=== PATIENT | male | born 1985 | race Two or more races ===

== ENCOUNTER 2018-07-13 08:39 | Emergency (ER) | payer OTHER ==
[2018-07-13 08:57] VITALS: BMI 29.7
[2018-07-13] MEDS ORDERED: PANTOPRAZOLE SODIUM 40 MG in SODIUM CHLORIDE 100 ML IVPB ONE (09:10)
[2018-07-13] MEDS ORDERED: KETOROLAC TROMETHAMINE 30 MG/1 ML VIAL IVPUSH ONE (09:10)
[2018-07-13] MEDS ORDERED: ONDANSETRON 4 MG/2 ML VIAL IVPUSH ONE (09:10)
[2018-07-13] MEDS ORDERED: SODIUM CHLORIDE 1,000 ML IV STA ×2 (09:10→10:11)
[2018-07-13] MEDS ORDERED: KETOROLAC TROMETHAMINE 30 MG/1 ML VIAL ONE (09:24)
[2018-07-13] MEDS ORDERED: PANTOPRAZOLE SODIUM 40 MG VIAL ONE (09:25)
[2018-07-13] MEDS ORDERED: ONDANSETRON 4 MG/2 ML VIAL ONE (09:25)
[2018-07-13 10:00] LABS: BASO % 0.2 % (0-2.0); HEMATOCRIT 51.3 % (35.4-49); HEMOGLOBIN 16.7 GM/dL (11.7-16.9); LYMPH % 7.5 % (8-40); MCH 28.8 pg (25.7-33.7); MCHC 32.5 g/dl (32.0-35.9); MEAN CELL VOLUME 88.7 fl (80-96); MEAN PLT VOLUME 10.2 fl (7.5-11.1); MONO % 7.5 % (3.8-10.2); NEUT % 84.8 % (42.8-82.8); PLATELET COUNT 272 K/MM3 (134-434); RBC 5.79 M/mm3 (4.00-5.60); RDW 12.4 % (11.9-15.9); WHITE BLOOD COUNT 24.8 K/mm3 (4.0-10.0)
--- NOTE | 2018-07-13 10:07 | PDOC ---
History of Present Illness - General Chief Complaint: Chest Pain Stated Complaint: CHEST PAIN/ VOMITING Time Seen by Provider: 07/13/18 09:07 History Source: Patient Exam Limitations: No Limitations - History of Present Illness Initial Comments: 07/13/18 09:32 32-year-old male presents to ED with complaints of epigastric pain which he describes as a burning sharp pain radiating to his chest causing a squeezing sensation alternated with burning since this morning. Patient states the past 2 days has had pain to his epigastric area causing him nausea and vomiting without fever, chills or diarrhea. Patient states is only tolerating water and anything he tries to eat causes him worsening pain and vomiting. Patient denies recent travel, recent illness, recent sick contacts. Patient denies alcohol or drug use. Patient denies smoking history. 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 07/13/18 COPD: No Diabetes: (pre-diabetic) - Suicide/Smoking/Psychosocial Hx Smoking History: Never smoked Substance Use Type: Cocaine Patient Lives Alone: No Lives with/in: spouse/SO Review of Systems - Review of Systems Able to Perform ROS?: Yes Constitutional: Yes: Weakness HEENTM: No: Symptoms Reported Respiratory: No: Symptoms reported Cardiac (ROS): No: Symptoms Reported ABD/GI: Yes: Nausea, Poor Appetite, Poor Fluid Intake, Vomiting, Indigestion, Abdominal cramping : No: Symptoms Reported Musculoskeletal: No: Symptoms Reported Integumentary: No: Symptoms Reported Neurological: Yes: Weakness. No: Headache, Dizziness Endocrine: No: Symptoms Reported Hematologic/Lymphatic: No: Symptoms Reported *Physical Exam - Vital Signs Last Vital Signs Temp Pulse Resp BP Pulse Ox 98.8 F 86 16 150/92 97 07/13/18 08:54 07/13/18 08:54 07/13/18 08:54 07/13/18 08:54 07/13/18 08:54 - Physical Exam General Appearance: Yes: Nourished, Appropriately Dressed. No: Apparent Distress HEENT: positive: EOMI, TMs Normal, Pharynx Normal (dry), Pale Conjunctivae Neck: positive: Normal Thyroid, Supple Respiratory/Chest: positive: Lungs Clear, Normal Breath Sounds. negative: Respiratory Distress, Accessory Muscle Use Cardiovascular: positive: Regular Rhythm, Regular Rate. negative: Murmur Gastrointestinal/Abdominal: positive: Soft, Tenderness (epigastric left upper quadrant) Musculoskeletal: negative: CVA Tenderness Extremity: positive: Normal Inspection Integumentary: positive: Normal Color, Warm, Moist Neurologic: positive: Motor Strength 5/5 (ambulatory) Heart Score/ECG Review - ECG Intrepretation Rhythm: Regular Rhythm (Rate 84 normal sinus rhythm) ED Treatment Course - LABORATORY CBC & Chemistry Diagram: 07/13/18 09:45 07/13/18 12:20 - Medications Given in the ED: ED Medications Discontinued Medications Generic Name Dose Route Start Last Admin Trade Name Freq PRN Reason Stop Dose Admin Pantoprazole Sodium 40 mg/ 100 mls @ 200 mls/hr 07/13/18 09:10 07/13/18 09:35 Sodium Chloride IVPB 07/13/18 09:39 200 mls/hr ONCE ONE Administration Ketorolac Tromethamine 30 mg 07/13/18 09:10 07/13/18 09:35 Toradol Injection - IVPUSH 07/13/18 09:11 30 mg ONCE ONE Administration Ondansetron HCl 4 mg 07/13/18 09:10 07/13/18 09:35 Zofran Injection IVPUSH 07/13/18 09:11 4 mg ONCE ONE Administration Medical Decision Making - Medical Decision Making 07/13/18 09:39 Chief complaint: epigastric discomfort causing him nausea and vomiting for the past 2 days radiating to his mid upper chest and left upper quadrant. Last bowel movement Tuesday Exam: Patient appears dry. Vital signs stable. Patient with epigastric and left upper quadrant tenderness. Plan: Fluids, antiemetics, Protonix, Toradol and labs. Likely gastritis versus GERD obstruction. on the differential cardiac etiology but unlikely based on history of present illness exam and EKG 07/13/18 10:10 07/13/18 12:16 Laboratory Tests 07/13/18 07/13/18 09:45 11:05 WBC 24.8 H Hgb 16.7 Hct 51.3 H Neutrophils % 84.8 H Lactic Acid 1.0 Patient ordered for second liter of fluid . Patient states feeling better chemistry hemolyzed will be sent. No acting vomiting since arrival 07/13/18 14:06 Laboratory Tests 07/13/18 07/13/18 09:45 12:20 WBC 24.8 H Hgb 16.7 Hct 51.3 H Absolute Neuts (auto) 21.0 H Neutrophils % 84.8 H Sodium 132 L Potassium 3.8 Carbon Dioxide 35 H Anion Gap 4 L BUN 20 H Creatinine 0.9 Est GFR (CKD-EPI)AfAm 132.37 Est GFR (CKD-EPI)NonAf 114.21 Calcium 9.1 Total Bilirubin 0.5 AST 24 ALT 40 Alkaline Phosphatase 78 Total Protein 7.8 Albumin 3.9 Lipase 118 Patient states feeling better and tolerated water and 2 packets of saltines. Patient to be discharged home with protonic's along with Zofran with referral to dental ceramist 07/13/18 14:07 *DC/Admit/Observation/Transfer Diagnosis at time of Disposition: Epigastric abdominal pain, Nausea & vomiting - Discharge Dispostion Disposition: HOME Condition at time of disposition: Improved - Prescriptions Prescriptions: Ondansetron HCl [Zofran] 4 mg PO TID PRN #12 tablet PRN Reason: Nausea And/Or Vomiting Pantoprazole Sodium [Protonix] 40 mg PO DAILY #30 tablet.dr - Referrals Referrals: Kvng Vieira MD [Staff Physician] - - Patient Instructions Printed Discharge Instructions: DI for Vomiting -- Adult, DI for Epigastric Pain Additional Instructions: Please follow-up bland diet for the next 2 days and then may advance as tolerated. Take Zofran as needed for nausea. Please start protonix tomorrow to decrease acid. Follow-up with referred dental ceramist - Post Discharge Activity Forms/Work/School Notes: Back to Work
[2018-07-13 10:38] VITALS: TEMP 98.1
[2018-07-13 12:20] LABS: ANISOCYTOSIS 1+; MACROCYTOSIS 0; PLATELET ESTIMATE NORMAL
[2018-07-13 13:22] VITALS: BP 147/79; PULSE 89
[2018-07-13 13:34] LABS: ALBUMIN 3.9 g/dl (3.4-5.0); BILIRUBIN,TOTAL 0.5 mg/dL (0.2-1); CALCIUM 9.1 mg/dL (8.5-10.1); CREATININE 0.9 mg/dL (0.55-1.3); MAGNESIUM 2.2 mg/dL (1.8-2.4); POTASSIUM 3.8 mmol/L (3.5-5.1); TOT PROT 7.8 g/dl (6.4-8.2)
--- NOTE | 2018-07-14 15:04 | EKG ---
Test Reason : Blood Pressure : / mmHG Vent. Rate : 084 BPM Atrial Rate : 084 BPM P-R Int : 140 ms QRS Dur : 094 ms QT Int : 356 ms P-R-T Axes : 068 038 058 degrees QTc Int : 420 ms NORMAL SINUS RHYTHM WITH SINUS ARRHYTHMIA POSSIBLE LEFT ATRIAL ENLARGEMENT INCOMPLETE RBBB NO PREVIOUS ECGS AVAILABLE Confirmed by MOLLY LEE MD ([id number]) on 07/14/2018 3:03:50 PM Referred By: Confirmed By:MOLLY LEE MD
== END 2018-07-13 14:25 | disposition home or self-care (01) ==
LOC: JER 08:39
PROC: 3E0337Z Introduction of Electrolytic and Water Balance Substance into Peripheral Vein, Percutaneous Approach (ICD-10-PCS; principal; 2018-07-13)
PROC: 3E0333Z Introduction of Anti-inflammatory into Peripheral Vein, Percutaneous Approach (ICD-10-PCS; 2018-07-13)
PROC: 3E033GC Introduction of Other Therapeutic Substance into Peripheral Vein, Percutaneous Approach (ICD-10-PCS; 2018-07-13)
PROC: 3E033GC Introduction of Other Therapeutic Substance into Peripheral Vein, Percutaneous Approach (ICD-10-PCS; 2018-07-13)
DX: R10.13 Epigastric pain (principal); R11.2 Nausea with vomiting, unspecified
CPT/HCPCS: 36415; 80053; 83605; 83690; 83735; 85025; 87040; 93005; 93010; 99283-25; J7030

== ENCOUNTER 2018-07-17 19:52 | Emergency (ER) | payer BC, OTHER ==
[2018-07-17 19:59] VITALS: BP 144/91; PULSE 103; TEMP 98.1; BMI 29.7
--- NOTE | 2018-07-17 20:00 | PDOC ---
Rapid Medical Evaluation Time Seen by Provider: 07/17/18 19:54 Medical Evaluation: Allergies Allergy/AdvReac Type Severity Reaction Status Date / Time No Known Allergies Allergy Verified 07/13/18 08:57 07/17/18 19:56 I have performed a brief in-person evaluation of this patient. The patient presents with a chief complaint of: Dx w/ gastritis vs GERD on 07/23 at [facility] with neg labs. Dc w/ protonix and zofran which does help per pt. Has GI appt scheduled for tomorrow but here w/ continued sxs w/ epigastric discomfort and intermittent n/v. No melena, BRBPR, f/c Pertinent physical exam findings:well kam and stable w/ no sig ttp I have ordered the following:none The patient will proceed to the ED for further evaluation. Discharge Disposition - Diagnosis Epigastric abdominal pain - Referrals - Patient Instructions - Post Discharge Activity
[2018-07-17] MEDS ORDERED: SODIUM CHLORIDE 1,000 ML IV STA (20:33)
--- NOTE | 2018-07-17 20:36 | PDOC ---
History of Present Illness - General Chief Complaint: Nausea/Vomiting Stated Complaint: VOMITING/ BACK PAIN Time Seen by Provider: 07/17/18 19:54 - History of Present Illness Initial Comments: 07/17/18 20:56 32-year-old male with nausea and vomiting, generalized abdominal pain since 2018. Patient was seen in this ER on 07/13/2018 was given IV fluids and GI cocktail. During that visit patient was noted to have WBC of 24.9. Patient was able to tolerate some by mouth and was referred to GI. Patient reports that since discharge, patient is unable to tolerate in the by mouth due to persistent vomiting. Patient also reports that he has been constipated with no bowel movement since start of symptoms. Denies fevers/chills. paient also reports chest discomfort and pain 07/17/18 21:28 Past History - Past Medical History Allergies/Adverse Reactions: Allergies Allergy/AdvReac Type Severity Reaction Status Date / Time No Known Allergies Allergy Verified 07/17/18 19:59 Home Medications: Ambulatory Orders Ondansetron HCl [Zofran] 4 mg PO TID PRN #12 tablet 07/13/18 Pantoprazole Sodium [Protonix] 40 mg PO DAILY #30 tablet. 07/13/18 COPD: No Diabetes: (pre-diabetic) - Immunization History Immunization Up to Date: Yes - Suicide/Smoking/Psychosocial Hx Smoking History: Unknown if ever smoked Have you smoked in the past 12 months: No Information on smoking cessation initiated: No Hx Alcohol Use: No Drug/Substance Use Hx: No Substance Use Type: Cocaine Review of Systems - Review of Systems Able to Perform ROS?: Yes Is the patient limited Citizen [place] proficient: No Constitutional: No: Symptoms Reported, See HPI, Chills, Diaphoresis, Fever, Loss of Appetite, Malaise, Night Sweats, Weakness, Weight Stable, Unintentional Wgt. Loss, Unexplained wgt Loss, Other Cardiac (ROS): Yes: Chest Pain ABD/GI: Yes: Nausea, Vomiting, Abdominal cramping : No: Symptoms Reported, See HPI, Burning, Dysuria, Discharge, Frequency, Flank Pain, Hematuria, Incontinence, Pain, Urgency, Testicular Mass, Testicular Swelling, Lesions, Testicular Pain, Other *Physical Exam - Vital Signs Last Vital Signs Temp Pulse Resp BP Pulse Ox 98.1 F 103 H 16 144/91 100 07/17/18 19:57 07/17/18 19:57 07/17/18 19:57 07/17/18 19:57 07/17/18 19:57 - Physical Exam General Appearance: Yes: Appropriately Dressed Respiratory/Chest: positive: Lungs Clear, Normal Breath Sounds Cardiovascular: positive: Regular Rhythm, Regular Rate Gastrointestinal/Abdominal: positive: Normal Bowel Sounds, Tender (RUQ, LLQ > RLQ) Male Genitalia: positive: normal genitalia Musculoskeletal: positive: Normal Inspection. negative: CVA Tenderness Extremity: positive: Normal Capillary Refill, Normal Inspection, Normal Range of Motion Integumentary: positive: Normal Color, Dry, Warm Neurologic: positive: Fully Oriented, Alert, Normal Mood/Affect ED Treatment Course - LABORATORY CBC & Chemistry Diagram: 07/17/18 20:40 07/17/18 20:40 Progress Note - Progress Note Progress Note: A: abdominal pain; chest pain P: Labs cbc wbc : 19 cmp: K : 3.3 Ua IVF zofran d-dimer : 900 ; unable to CTA due to recent CTAP/ : patient reports pleuritic pain after vomiting. Medical Decision Making - Medical Decision Making 07/18/18 02:05 Note: The patient insists on leaving the emergency dept and is signing out against medical advice. i offered admission for VQ scan tomorrow. patient prefers to go to his Gi appointment today. strict return precautions reviewed with patient The patient understands the risks and complications that may result from the refusal of medical care and admission which includes and permanent disability. The patient has the mental capacity of understanding the risks of refusing care and is capable of making an informed decision. The patient was instructed to return to the emergency department should [] change [] mind regarding medical care or should [] condition worsen. The patient signed the Against Medical Advice form. *DC/Admit/Observation/Transfer Diagnosis at time of Disposition: Epigastric abdominal pain, Pleuritic chest pain, Elevated d-dimer Nausea & vomiting Qualifiers: Vomiting type: unspecified Vomiting Intractability: unspecified Qualified Code( s): R11.2 - Nausea with vomiting, unspecified - Discharge Dispostion Disposition: AGAINST MEDICAL ADVICE - Referrals - Patient Instructions - Post Discharge Activity Forms/Work/School Notes: Back to Work
[2018-07-17] MEDS ORDERED: ONDANSETRON 4 MG/2 ML VIAL IVPUSH ONE (20:45)
[2018-07-17] MEDS ORDERED: ONDANSETRON 4 MG/2 ML VIAL ONE (20:51)
[2018-07-17 20:57] LABS: BASO % 0.2 % (0-2.0); EOS % 0.1 % (0-4.5); HEMATOCRIT 46.5 % (35.4-49); HEMOGLOBIN 14.8 GM/dL (11.7-16.9); LYMPH % 15.9 % (8-40); MCH 28.2 pg (25.7-33.7); MCHC 31.8 g/dl (32.0-35.9); MEAN CELL VOLUME 88.7 fl (80-96); MEAN PLT VOLUME 9.5 fl (7.5-11.1); MONO % 5.6 % (3.8-10.2); NEUT % 78.2 % (42.8-82.8); PLATELET COUNT 249 K/MM3 (134-434); RBC 5.25 M/mm3 (4.00-5.60); RDW 12.3 % (11.9-15.9)
[2018-07-17 21:20] LABS: ALBUMIN 4.4 g/dl (3.4-5.0); ALK PHOS 91 U/L (45-117); ANION GAP 10 MMOL/L (8-16); BLOOD UREA NITROGEN 14 mg/dL (7-18); CALCIUM 9.9 mg/dL (8.5-10.1); CHLORIDE 94 mmol/L (98-107); CO2 32 mmol/L (21-32); GLUCOSE,RANDOM 112 mg/dL (74-106); LIPASE 349 U/L (73-393); POTASSIUM 3.3 mmol/L (3.5-5.1); SGOT/AST 59 U/L (15-37); SGPT/ALT 172 U/L (13-61); SODIUM 136 mmol/L (136-145); TOT PROT 8.7 g/dl (6.4-8.2)
[2018-07-17 21:23] LABS: INR 1.13 (0.83-1.09); PROTHROMBIN TIME (PATIENT) 13.3 SEC (9.7-13.0)
[2018-07-17] MEDS ORDERED: POTASSIUM CHLORIDE TABS 20 MEQ TABLET.ER (FP) PO ONE ×2 (23:05→23:22)
[2018-07-17 23:13] LABS: URINE APPEARANCE CLEAR; URINE BILIRUBIN NEGATIVE (NEGATIVE); URINE COLOR YELLOW; URINE GLUCOSE (UA) NEGATIVE (NEGATIVE); URINE KETONE 40 mg/dl (NEGATIVE); URINE NITRITE NEGATIVE (NEGATIVE); URINE PROTEIN NEGATIVE (NEGATIVE)
[2018-07-17 23:14] LABS: URINE LEUK ESTERASE NEGATIVE (NEGATIVE)
--- NOTE | 2018-07-18 12:08 | EKG ---
Test Reason : Blood Pressure : / mmHG Vent. Rate : 077 BPM Atrial Rate : 077 BPM P-R Int : 142 ms QRS Dur : 090 ms QT Int : 398 ms P-R-T Axes : 065 030 041 degrees QTc Int : 450 ms POOR DATA QUALITY, INTERPRETATION MAY BE ADVERSELY AFFECTED NORMAL SINUS RHYTHM NORMAL ECG WHEN COMPARED WITH ECG OF 13-JUL-2018 08:41, NO SIGNIFICANT CHANGE WAS FOUND Confirmed by MD Galindo, Tyson ([id number]) on 07/18/2018 12:08:01 PM Referred By: Confirmed By:Tyson Medley MD
== END 2018-07-18 02:19 | disposition left against medical advice (07) ==
LOC: JER 19:52
PROC: 3E033GC Introduction of Other Therapeutic Substance into Peripheral Vein, Percutaneous Approach (ICD-10-PCS; principal; 2018-07-17)
PROC: 3E0337Z Introduction of Electrolytic and Water Balance Substance into Peripheral Vein, Percutaneous Approach (ICD-10-PCS; 2018-07-17)
DX: R10.13 Epigastric pain (principal); K21.9 Gastro-esophageal reflux disease without esophagitis; R73.03 Prediabetes
CPT/HCPCS: 36415; 71250-TC; 74177-TC; 76705-TC; 80053; 81003; 83605; 83690; 84484; 85025; 85379; 85610; 93005; 93010; 99283-25; J7030